=== PATIENT | male | born 1990 | race Caucasian/White ===

== ENCOUNTER 2025-10-08 15:48 | Emergency (ER) | payer SELFPAY ==
[~2025-10-08] VITALS: Ht 177.8 cm; Wt 99.8 kg
[~2025-10-08 15:48] MED LIST: AUGMENTIN 875875 MG PO; ELIMITE 5%60 GM PO; FLEXERIL10 MG PO; FLEXERIL5 MG PO; HYDROCODONE BIT1 T11 PO; MEDROL DOSEPAK4 MG PO; MIRALAX POWDER17 G1 PO; MOTRIN800 MG PO; MULTIVITAMIN1 CTB PO; NEXIUM20 MG PO; NKHM; NORCO 325 MG-101 TAB PO; NORCO 325 MG-51 TAB PO; PERCOCET 325 MG1 TA2 PO; ROBAXIN750 MG PO; THORAZINE25 MG PO; TRAMADOL HCL50 MG PO; ULTRAM50 MG PO; VOLTAREN50 M1 PO
[2025-10-08 16:46] LABS: BILIRUBIN Negative (Negative); BLOOD Negative (Negative); CLARITY Clear (Clear); COLOR Yellow (Yellow); KETONE Negative (Negative); LEUKO ESTERASE Negative (Negative); NITRITE Negative (Negative); PH 6.5 (4.5-8.0); SPECIFIC GRAVITY 1.010 (1.001-1.030); UROBILINOGEN 0.2 E.U./dl (0.0-1.0)
[2025-10-08 16:51] LABS: URINE AMPHETAMINES Negative (1000ng/ml); URINE BARBITURATES Negative (200ng/ml); URINE BENZODIAZEPINES Negative (200ng/ml); URINE CANNABINOIDS (THC) Negative (50ng/ml); URINE COCAINE Negative (300ng/ml); URINE METHADONE Negative (300ng/ml); URINE OPIATES Negative (300ng/ml); URINE PHENCYCLIDINE Negative (25ng/ml)
[2025-10-08 16:54] LABS: BASO # 0.0 10*3/uL (0.0-0.1); BASO % 0.4 % (0.0-1.0); EOS # 0.0 10*3/uL (0.0-0.4); EOS % 0.4 % (1.0-4.0); MEAN CELL VOLUME 84.7 fl (80.0-94.0); MEAN CORPUSCULAR HGB 30.2 pg (27.0-31.0); MEAN PLATELET VOLUME 8.9 fl (9.6-12.3); MONO # 0.4 10*3/uL (0.1-1.0); MONO % 4.8 % (3.0-9.0); NEUT # 5.7 10*3/uL (2.3-7.9); NEUT % 71.3 % (47.0-73.0); NUCLEATED RED BLOOD CELL 0.0 % (0.0-0.0); NUCLEATED RED BLOOD CELL 0.0 10*3/uL (0.0-0.0); PLATELET COUNT AUTOMATED 299 10*3/uL (130-400); RED CELL DISTRI WIDTH 12.3 % (0-14.5)
[2025-10-08 16:58] LABS: RBC 0-2 rbc/hpf (0-2); WBC 0-2 wbc/hpf (0-5)
[2025-10-08 16:59] LABS: BACTERIA 2+
[2025-10-08 17:33] LABS: BUN 8 mg/dl (9-23)
[2025-10-08 17:35] LABS: ETHYL ALCOHOL < 3.0 mg/dl (<3)
== END 2025-10-09 10:51 ==
LOC: ED 15:48
PROVIDERS: Nurse Practitioner Family
DX: F43.21 Adjustment disorder with depressed mood (principal); K21.9 Gastro-esophageal reflux disease without esophagitis; Z98.890 Other specified postprocedural states; Z79.899 Other long term (current) drug therapy